=== PATIENT | female | born 1970 | race Caucasian/White ===

== ENCOUNTER → 2021-10-23 11:14 | Outpatient (BNVA) | payer OTHER, SELFPAY | PROVIDERS: Referring Provider Nurse Practitioner Family; Visit Provider Podiatrist Foot & Ankle Surgery | DX: M79.671 Pain in right foot (principal); M79.672 Pain in left foot | CPT/HCPCS: 73630 ==

== ENCOUNTER 2021-10-23 13:51 | Outpatient (CLI) | payer OTHER, SELFPAY | END 2021-10-23 13:52 | disposition home or self-care (01) | LOC: SPT 13:52 | PROVIDERS: Visit Provider Podiatrist Foot & Ankle Surgery | DX: Z46.89 Encounter for fitting and adjustment of other specified devices (principal); M21.40 Flat foot [pes planus] (acquired), unspecified foot; G62.9 Polyneuropathy, unspecified; M79.672 Pain in left foot; M79.671 Pain in right foot | CPT/HCPCS: 97760; L4397 ==

== ENCOUNTER 2021-11-06 06:00 | Outpatient (RCR) | payer OTHER, SELFPAY | END 2021-12-02 23:59 | disposition home or self-care (01) | LOC: SPT 06:00 | PROVIDERS: Referring Provider Nurse Practitioner Family; Visit Provider Nurse Practitioner Family | DX: M96.1 Postlaminectomy syndrome, not elsewhere classified (principal) | CPT/HCPCS: 97161 ==

== ENCOUNTER 2022-01-03 06:00 | Outpatient (RCR) | payer OTHER, SELFPAY | END 2022-02-01 23:59 | disposition home or self-care (01) | LOC: SPT 06:00 | PROVIDERS: Referring Provider Nurse Practitioner Family; Visit Provider Nurse Practitioner Family | DX: M54.2 Cervicalgia (principal); M54.50 Low back pain, unspecified | CPT/HCPCS: 97113 ==

== ENCOUNTER 2022-02-02 06:00 | Outpatient (RCR) | payer OTHER, SELFPAY | END 2022-03-04 23:59 | disposition home or self-care (01) | LOC: SPT 06:00 | PROVIDERS: Referring Provider Nurse Practitioner Family; Visit Provider Nurse Practitioner Family | DX: M96.1 Postlaminectomy syndrome, not elsewhere classified (principal) | CPT/HCPCS: 97110; 97113 ==

== ENCOUNTER → 2022-02-19 13:09 | Outpatient (BNVA) | payer OTHER, SELFPAY | PROVIDERS: Visit Provider Podiatrist Foot & Ankle Surgery | DX: M25.571 Pain in right ankle and joints of right foot; M24.571 Contracture, right ankle; M24.572 Contracture, left ankle; M21.622 Bunionette of left foot; M21.621 Bunionette of right foot; M21.41 Flat foot [pes planus] (acquired), right foot; M20.42 Other hammer toe(s) (acquired), left foot; G62.9 Polyneuropathy, unspecified; M25.572 Pain in left ankle and joints of left foot | CPT/HCPCS: 99213 ==

== ENCOUNTER → 2022-08-22 12:53 | Outpatient (BNVA) | payer OTHER, SELFPAY | PROVIDERS: Visit Provider Podiatrist Foot & Ankle Surgery | DX: M21.41 Flat foot [pes planus] (acquired), right foot (principal); M21.42 Flat foot [pes planus] (acquired), left foot; M20.42 Other hammer toe(s) (acquired), left foot; G62.9 Polyneuropathy, unspecified; M21.621 Bunionette of right foot; M21.622 Bunionette of left foot; M24.573 Contracture, unspecified ankle | CPT/HCPCS: 99214 ==